=== PATIENT | male | born 1960 | race Two or more races ===

== ENCOUNTER 2017-02-11 08:42 | Day surgery (SDC) | payer OTHER ==
[~2017-02-11] VITALS: Ht 167.6 cm; Wt 114.0 kg
[2017-02-11] MEDS ORDERED: [UNRECOGNIZED DRUG - OTHER] (09:26)
[2017-02-11] MEDS ORDERED: [UNRECOGNIZED DRUG - REMARK] (09:26)
[2017-02-11] MEDS ORDERED: BP MED (09:26)
[2017-02-11] MEDS ORDERED: [UNRECOGNIZED DRUG - REMARK] (09:26)
[2017-02-11 09:27] VITALS: Ht 167.6 cm; Wt 114.0 kg
[2017-02-11] MEDS ORDERED: PROPOFOL 20 ML ONE (10:07)
[2017-02-11 10:13] VITALS: BP 165/86; PULSE 85; RESP 15
--- NOTE | 2017-02-11 10:32 | OPPN ---
Date/Time of Note Date/Time of Note DATE: 02/11/17 TIME: 10:31 Proc Note GI Procedure Date 02/11/17 Pre-procedure Diagnosis Screening for surveillance of colon polyp Post-procedure Diagnosis 2 polyps found in the rectum successfully removed by cold snare technique Procedure Performed: Colonoscopy Surgeon see signature line Rag Room Supervisor none Anesthesia Type: MAC Tourniquet Time none EBL none Transfusion required none Biopsy 1: None Polyp 1: Retrieved was sent for analysis Grafts/Implants none Tubes/Drains none Complication(s) none Disposition: PACU Procedure Description Dictated DADA MOORE MD Feb 11, 2017 10:32
[2017-02-11 11:02] VITALS: BP 135/80; PULSE 81; RESP 18
--- NOTE | 2017-02-11 11:39 | GILP ---
DATE OF PROCEDURE: 02/11/2017 PROCEDURE: Colonoscopy with polypectomy. INDICATION: A 56-year-old male undergoing this procedure for colon cancer screening. The risks of the procedure, related and unrelated complications, anesthetic risks, alternatives discussed, inform ed consent obtained. DESCRIPTION OF PROCEDURE: The patient was brought to the GI lab, sedated by ACCOUNTING CLERKS SUPERVISOR and after obtainin g sedation, digital examination done, which was normal. Sphincter tone was normal. Prostate was no t enlarged. Scope was passed with much ease into the rectum and advanced slowly through sigmoid, de scending, transverse colon all the way into the cecum. Rest of the colon appeared normal. Clarity and cleanliness was good. Appendiceal orifice and IC valve identified. While coming out, mucosa th oroughly inspected. There were 2 polyps identified, small polyp, 6-7 mm in diameter. Both were rem alexi successfully by cold snare technique. The patient had small hemorrhoids. IMPRESSION: 1. Hemorrhoids, small. 2. Two small polyps successfully removed by cold snare technique. 3. Negative all the way into the cecum. PLAN: Review the histopathology. Stay on high fiber diet. If the polyp is known hyperplastic flyermias alejo have a colonoscopy in 5 years. Dictated By: DADA DURÁN/JEFE Conf#: [id number] DID#: [id number] CC: DADA MOORE MD; BJ PALACIOS MD;*EndCC*
== END 2017-02-11 11:04 | disposition home or self-care (01) ==
LOC: GIL 08:42
PROVIDERS: ATTEND Internal Medicine Gastroenterology
DX: Z12.11 Encounter for screening for malignant neoplasm of colon (principal); K62.1 Rectal polyp; E11.9 Type 2 diabetes mellitus without complications; I10 Essential (primary) hypertension; E78.5 Hyperlipidemia, unspecified
CPT/HCPCS: 82962; 88305

== ENCOUNTER 2018-10-01 23:29 | Inpatient (IN) | payer OTHER ==
[~2018-10-01] VITALS: Ht 162.6 cm; Wt 114.4 kg
[~2018-10-01 23:29] MED LIST: AMLO-147 PO; BP MED; ERGO500013 PO; FURO40TA4 PO; LISI-471 PO; LORA-441 PO; METF-849 PO; MTF1000T PO; Magnesium Chloride PO; OMEP20CA16 PO; POTA20PA23 PO; ROPI1TAB PO; SIMV40TA3 PO; SPIR25TA PO; [UNRECOGNIZED DRUG - OTHER]; [UNRECOGNIZED DRUG - REMARK]; [UNRECOGNIZED DRUG - REMARK]
[2018-10-02] VITALS (7 sets, daily range): BP systolic 113–133; BP diastolic 60–74; PULSE 72–89; RESP 17–20; Ht 162.6 cm; Wt 114.4 kg
[2018-10-02] MEDS ORDERED: ACETAMINOPHEN 325 MG TAB PO PRN (03:30)
[2018-10-02] MEDS ORDERED: GLUCOSE GEL 15 GRAM TUBE PO PRN ×2 (04:00)
[2018-10-02] MEDS ORDERED: DEXTROSE 50% 50 ML SYRINGE IV PRN ×2 (04:00)
[2018-10-02] MEDS ORDERED: GLUCAGON 1 MG INJ IM PRN (04:00)
[2018-10-02] MEDS ORDERED: GLUCOSE GEL 15 GRAM TUBE BUCCAL PRN (04:00)
[2018-10-02] MEDS: FUROSEMIDE 40 MG INJ IV SCH ×2 (06:37→17:25)
[2018-10-02] MEDS: INSULIN ASPART [NOVOLOG] 3 ML PEN SC SCH ×4 (07:55→21:00)
[2018-10-02] MEDS: LISINOPRIL 20 MG TAB PO SCH (08:13)
[2018-10-02] MEDS: AMLODIPINE 10 MG TAB PO SCH (08:13)
[2018-10-02] MEDS ORDERED: HEPARIN 5,000 UNIT/1 ML VIAL SC SCH (09:00)
[2018-10-02] MEDS ORDERED: POTASSIUM CHLORIDE (SR) 20 MEQ TAB PO STA (16:24)
--- NOTE | 2018-10-02 16:27 | QN ---
Documentation Comment pt seen and examined with MOBILE HOME MECHANIC at bedside anasarca with ble edema low plt count, elevated INR>Suspect liver pathology will order abd US Thoracentesis UA and ECHO KRISTY GONZALEZ MD Oct 02, 2018 16:26
--- NOTE | 2018-10-02 16:56 | HP ---
Date/Time of Note Date/Time of Note DATE: 10/02/18 TIME: 16:22 Assessment/Plan VTE Prophylaxis Risk score (from [facility])>0 risk: 3 SCD applied (from [facility]): Yes Pharmacological prophylaxis: NA/contraindicated Pharm contraindication: thrombocytopenia Lines/Catheters IV Catheter Type (from [facility]): Saline Lock Urinary Cath still in place: No Assessment/Plan Hospital Course Systolic CHF echocardiogram is not available, lateral lower extremity edema hypochromic Anemia Neutropenia with thrombocytopenia more likely due to liver disease. 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 Hematuria Morbid obesity Hypokalemia Hypo-albuminemia s/p left eye surgery with consequent blindness Assessment/Plan -DVT prophylaxis stocking compressive devices, unable to utilize chemical agents due to thrombocytopenia -GI prophylaxis Protonix p.o. -Follow-up with the ultrasound of the pleural cavities - iron panel tomorrow -Low-fat diet Consent for the right centesis is no sign -Dr. Justin for the cardiology consult called dr celaya is methane gas collection system operator -Dr. Batres GI consult Result Diagram: 10/02/18 0946 10/02/18 1529 Results 24hrs Laboratory Tests Test 10/02/18 07:57 10/02/18 09:46 10/02/18 12:15 10/02/18 15:29 Bedside Glucose 92 100 White Blood Count 4.6 L Red Blood Count 3.13 L Hemoglobin 10.0 L Hematocrit 29.7 L Mean Corpuscular 94.9 Volume Mean Corpuscular 31.9 Hemoglobin Mean Corpuscular 33.7 Hemoglobin Concent Red Cell Distribution 14.9 H Width Platelet Count 37 L Mean Platelet Volume 12.0 H Immature Granulocytes 0.200 % Neutrophils % 60.9 Segmented Neutrophils 72 % (Manual) Lymphocytes % 22.3 Lymphocytes % 17 (Manual) Reactive Lymphocytes 2 H % (Manual) Monocytes % 13.1 H Monocytes % (Manual) 4 Eosinophils % 2.6 Eosinophils % 2 (Manual) Basophils % 0.9 Basophils % (Manual) 3 H Nucleated Red Blood 0.0 Cells % Immature Granulocytes 0.010 # Neutrophils # 2.8 Lymphocytes (Manual) 0.7 L Lymphocytes # 1.0 Reactive Lymphocytes 0.0 # Monocytes # 0.6 Monocytes # (Manual) 0.1 L Eosinophils # 0.1 Basophils # 0.0 Basophils # (Manual) 0.1 H Nucleated Red Blood 0.0 Cells # Pathologist YES Review (Hematology) Platelet Estimate SIG DECREASED Giant Platelets 1 H Poikilocytosis 1+ Anisocytosis 1+ Macrocytosis 1+ Prothrombin Time 21.5 H Prothrombin Time 1.7 Ratio INR International 1.86 Normalized Ratio Activated 50.0 H Partial Thromboplast Time Sodium Level 136 Potassium Level 3.4 L Chloride Level 105 Carbon Dioxide Level 30 Anion Gap 1 L Blood Urea Nitrogen 12 Creatinine 0.92 Est Glomerular > 60 Filtrat Rate mL/min Glucose Level 137 Calcium Level 8.4 Total Bilirubin 2.2 H Direct Bilirubin 0.00 Indirect Bilirubin 2.2 H Aspartate Amino 61 H Transf (AST/SGOT) Alanine 42 Aminotransferase (ALT /SGPT) Alkaline Phosphatase 111 Total Protein 7.1 Albumin 2.6 L Globulin 4.50 H Albumin/Globulin 0.57 Ratio HPI/ROS Admit Date/Time Admit Date/Time Oct 02, 2018 at 01:59 Hx of Present Illness This 66 years old obese male with medical history of diabetes mellitus type 2, left eye blindness, hypertension, bilateral lower extremity neuropathy, CHF was seen his primary doctor Dr. Shen, every 3 months. 2 weeks ago he observed that his lower extremity got swollen more than normal. He was prescribed by cardiology Lasix once a day. He was noncompliant. He did not take Lasix as prescribed he took it maybe once a week. Yesterday he went to [facility] with shortness of breath. He was evaluated in [facility]. There were chest x-ray done result is not available. They were CT scan done record is not available. The request old records from [place]. Incomplete medical record is reviewed: EKG was done which showed normal sinus rhythm. Patient was received in the emergency room Lasix [address] angiogram of the chest with contrast was performed the record is not available. CBC is WBC 3.2 RBC 3.31 hemoglobin 10.6 hematocrit 31 MCV 94 MCH 32 RDW 15.3% platelets 64. BNP is normal vital signs are normal BMP shows sodium 136 potassium 3.5 chloride 106 CO2 22 anion gap 8 glucose 97 BUN 8 creatinine 0.75 GFR above 60 calcium 8.1. UA showed Trace Judith clarity clear pH 5.0 specific gravity 1.0 16 protein negative blood 3+ glucose negative ketones negative bilirubin negative nitrite negative leukocyte esterase negative WBC 0-5 RBC 11-20 epithelial few mucus none. Social history lives with . Denies smoking drinking and alcohol abuse. Home medications are reviewed. In the chart. Surgical history status post left eye surgery for lens replacement patient is left blind. 2010, the patient has a left arm surgery when he was 4-year-old ROS Constitutional: No fever, cough or chills. EYE: left eye blindness. no other visual problems. CARDIOVASCULAR: No chest pain. No tachycardia. No Palpitation. RESPIRATORY: SOB, orthopnea GASTROINTESTINAL: No Nausea. No Vomiting. No constipation. Endocrine: No excessive thirst, No polyuria, No hot intolerance. No cold intolerance. MUSCULO-SKELETAL: No bone or Joint disease, increased edema bilateral lower ex tremity. NEUROLOGICAL: Alert oriented in person, place, time and situation. No Headache, Confusion. No Seizures. No problem with balance. PMH/Family/Social Past Medical History Medical History: congestive heart failure, diabetes, hypertension Medications Current Medications Amlodipine Besylate (Norvasc) 10 mg DAILY PO Last administered on 10/02/18at 08:13; Admin Dose 10 MG; Start 10/02/18 at 09:00 Furosemide (Lasix) 40 mg BID DIURETICS IV Last administered on 10/02/18at 06:37; Admin Dose 40 MG; Start 10/02/18 at 06:00 Lisinopril (Zestril) 20 mg DAILY PO Last administered on 10/02/18at 08:13; Admin Dose 20 MG; Start 10/02/18 at 09:00 Acetaminophen (Tylenol Tab) 650 mg Q6H PRN PO MILD PAIN(1-3)OR ELEVATED TEMP; Start 10/02/18 at 03:30 Diagnostic Test (Pha) (Accu-Chek) 1 ea 02 XX ; Start 10/03/18 at 02:00 Insulin Aspart (Novolog Insulin Pen) NOVOLOG *MILD* ALGORITHM WITH MEALS BEDTIME SC ; Start 10/02/18 at 07:55 Miscellaneous Information 1 ea NOTE XX ; Start 10/02/18 at 04:00 Glucose (Glutose) 15 gm Q15M PRN PO DECREASED GLUCOSE; Start 10/02/18 at 04:00 Glucose (Glutose) 22.5 gm Q15M PRN PO DECREASED GLUCOSE; Start 10/02/18 at 04:00 Dextrose (D50w Syringe) 25 ml Q15M PRN IV DECREASED GLUCOSE; Start 10/02/18 at 04:00 Dextrose (D50w Syringe) 50 ml Q15M PRN IV DECREASED GLUCOSE; Start 10/02/18 at 04:00 Glucagon (Glucagen) 1 mg Q15M PRN IM DECREASED GLUCOSE; Start 10/02/18 at 04:00 Glucose (Glutose) 15 gm Q15M PRN BUCCAL DECREASED GLUCOSE; Start 10/02/18 at 04:00 Coded Allergies: No Known Allergy (Unverified , 02/11/17) Past Surgical History Past Surgical Hx: other (left eye surgery) Social History Alcohol Use: none Smoking Status: Current every day smoker Drug Use: none Exam/Review of Systems Vital Signs Vitals Vital Signs Date Temp Pulse Resp B/P (MAP) Pulse Ox O2 O2 Flow FiO2 Time Delivery Rate 10/02/18 99.0 84 18 113/66 97 Room Air 15:25 (82) 10/02/18 2.0 08:00 Exam Exam No acute distress, no events overnight. Eyes: anicteric. no pallor Nose: no rhinorrhea Neck: supple, no thyromegaly, no carotid bruits Lungs: clear bilaterally, decreased. CVS: regular rate and rhythm, no murmurs Abdomen: soft, obese, bowel sounds present, no hepatosplenomegally, no masses, no rebound or guarding. Rectal: differed. External genitalia: no lesions. Extremities: 2 Plus edema, DP pulses are palpable Neuro: alert and oriented x 3 Gait: normal Motor strength: 5+/5+ Sensory exam: normal, bilaterally decreased Deep tendon reflexes: normal, Babisky reflexes are absent bilaterally Skin: no lesions MILTON GRAHAM NP Oct 02, 2018 16:34
--- NOTE | 2018-10-02 18:49 | CONS ---
DATE OF ADMISSION: 10/02/2018 DATE OF CONSULTATION: 10/02/2018 HISTORY OF PRESENT ILLNESS: A 58-year-old male was admitted for a pleural effusion and possible thor acocentesis. I reviewed his chart and ultrasound. The patient has got cirrhosis of liver. He is al so morbidly obese. He had a history of thrombocytopenia which was along with the cirrhosis of liver. All the findings were discussed with the patient and the . All the questions were answered and I will dictate the full note later on. Dictated By: DADA DURÁN/JEFE Conf#: [id number] DID#: [id number] CC: MARISELA AGUIRRE MD;*EndCC*
[2018-10-03] MEDS ORDERED: ACCU-CHEK XX SCH (02:00)
[2018-10-03 03:33] VITALS: BP 113/64; PULSE 80; RESP 18
[2018-10-03] MEDS: FUROSEMIDE 40 MG INJ IV SCH ×2 (06:24→17:30)
[2018-10-03 07:30] VITALS: BP 118/69; PULSE 78; RESP 20
[2018-10-03] MEDS: INSULIN ASPART [NOVOLOG] 3 ML PEN SC SCH ×2 (07:55→11:50)
[2018-10-03] MEDS: AMLODIPINE 10 MG TAB PO SCH (08:59)
[2018-10-03] MEDS: LISINOPRIL 20 MG TAB PO SCH (08:59)
[2018-10-03] MEDS ORDERED: ERGOCALCIFEROL 50,000 UNIT CAP PO SCH (12:00)
[2018-10-03] MEDS ORDERED: MAGNESIUM SULFATE 2 GM/50 ML 50 ML IVPB ONE (12:00)
--- NOTE | 2018-10-03 12:01 | PN ---
Date/Time of Note Date/Time of Note DATE: 10/03/18 TIME: 11:59 Assessment/Plan VTE Prophylaxis Risk score (from [facility])>0 risk: 2 [place]CD applied [place] [facility] Yes SCD contraindicated: low risk/ambulating Pharmacological prophylaxis: NA/contraindicated Pharm contraindication: anticoag not tolerated Lines/Catheters IV Catheter Type (from [facility]): Saline Lock Urinary Cath still in place: No Assessment/Plan Hospital Course Systolic CHF echocardiogram is not available, lateral lower extremity edema Normocytic hypochromic Anemia Neutropenia with thrombocytopenia more likely due to liver disease, liver cirrhosis. 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 Hematuria Morbid obesity Hypokalemia Hypo-albuminemia due to liver cirrhosis s/p left eye surgery with consequent blindness Small left pleural effusion Small simple cyst in the right kidney. Assessment/Plan -start ergocalciferol 50 000 weekly -magnesium supplement --potassium supplement -dr Batres consult is appreciated -dc accucheck -US liver reviewed -s/p plasma transfusion Result Diagram: 10/03/1856 10/03/1856 Results 24hrs Laboratory Tests Test 10/02/18 12:15 10/02/18 15:29 10/02/18 17:32 10/02/18 21:01 Bedside Glucose 100 115 141 Sodium Level 136 Potassium Level 3.4 L Chloride Level 105 Carbon Dioxide Level 30 Anion Gap 1 L Blood Urea Nitrogen 12 Creatinine 0.92 Est Glomerular > 60 Filtrat Rate mL/min Glucose Level 137 Calcium Level 8.4 Total Bilirubin 2.2 H Direct Bilirubin 0.00 Indirect Bilirubin 2.2 H Aspartate Amino 61 H Transf (AST/SGOT) Alanine 42 Aminotransferase (AL T/SGPT) Alkaline Phosphatase 111 Total Protein 7.1 Albumin 2.6 L Globulin 4.50 H Albumin/Globulin 0.57 Ratio Test 10/03/18 06:50 10/03/18 06:56 10/03/18 08:00 10/03/18 11:42 Hemoglobin A1c 5.2 White Blood Count 4.0 L Red Blood Count 3.13 L Hemoglobin 9.9 L Hematocrit 29.1 L Mean Corpuscular 93.0 Volume Mean Corpuscular 31.6 Hemoglobin Mean Corpuscular 34.0 Hemoglobin Concent Red Cell 14.7 H Distribution Width Platelet Count 51 #L Mean Platelet Volume 11.8 H Immature 0.200 Granulocytes % Neutrophils % 56.8 Lymphocytes % 26.8 Monocytes % 11.7 H Eosinophils % 3.5 Basophils % 1.0 Nucleated Red Blood 0.0 Cells % Immature 0.010 Granulocytes # Neutrophils # 2.3 Lymphocytes # 1.1 Monocytes # 0.5 Eosinophils # 0.1 Basophils # 0.0 Nucleated Red Blood 0.0 Cells # Prothrombin Time 19.9 H Prothrombin Time 1.6 Ratio INR International 1.68 Normalized Ratio Activated 48.5 H Partial Thromboplast Time Sodium Level 139 Potassium Level 3.6 Chloride Level 106 Carbon Dioxide Level 30 Anion Gap 3 L Blood Urea Nitrogen 12 Creatinine 0.90 Est Glomerular > 60 Filtrat Rate mL/min Glucose Level 99 Calcium Level 8.8 Phosphorus Level 4.0 Magnesium Level 1.4 L Iron Level 91 Total Iron Binding 228 L Capacity Percent Iron 40 Saturation Total Bilirubin 2.0 H Direct Bilirubin 0.00 Indirect Bilirubin 2.0 H Aspartate Amino 60 H Transf (AST/SGOT) Alanine 38 Aminotransferase (AL T/SGPT) Alkaline Phosphatase 104 Total Protein 7.2 Albumin 2.7 L Globulin 4.50 H Albumin/Globulin 0.60 Ratio Vitamin D < 12.8 L 1,25-Dihydroxy Bedside Glucose 95 120 Subjective 24 Hr Interval Summary Constitutional: improved Exam/Review of Systems Exam Vitals Vital Signs Date Temp Pulse Resp B/P (MAP) Pulse Ox O2 O2 Flow FiO2 Time Delivery Rate 10/03/18 Nasal 2.0 08:20 Cannula 10/03/18 98.1 78 20 118/69 98 07:30 (85) Intake and Output 10/02/18 10/02/18 10/03/18 1515:00 23:00 07:00 IntakeIntake Total 1092 ml BalanceBalance 1092 ml Constitutional: alert, oriented Psych: no complaints Head: normocephalic Eyes: nl conjunctiva ENMT: mucosa pink and moist Neck: supple Respiratory: clear to auscultation Cardiovascular: regular rate and rhythm Gastrointestinal: soft, other (obese) Genitourinary - Male: CVA tenderness; No nl penis, No nl scrotum, No discharge, No other Musculoskeletal: swelling (LE decreased) Results Results 24hrs Laboratory Tests Test 10/02/18 12:15 10/02/18 15:29 10/02/18 17:32 10/02/18 21:01 Bedside Glucose 100 115 141 Sodium Level 136 Potassium Level 3.4 L Chloride Level 105 Carbon Dioxide Level 30 Anion Gap 1 L Blood Urea Nitrogen 12 Creatinine 0.92 Est Glomerular > 60 Filtrat Rate mL/min Glucose Level 137 Calcium Level 8.4 Total Bilirubin 2.2 H Direct Bilirubin 0.00 Indirect Bilirubin 2.2 H Aspartate Amino 61 H Transf (AST/SGOT) Alanine 42 Aminotransferase (AL T/SGPT) Alkaline Phosphatase 111 Total Protein 7.1 Albumin 2.6 L Globulin 4.50 H Albumin/Globulin 0.57 Ratio Test 10/03/18 06:50 10/03/18 06:56 10/03/18 08:00 10/03/18 11:42 Hemoglobin A1c 5.2 White Blood Count 4.0 L Red Blood Count 3.13 L Hemoglobin 9.9 L Hematocrit 29.1 L Mean Corpuscular 93.0 Volume Mean Corpuscular 31.6 Hemoglobin Mean Corpuscular 34.0 Hemoglobin Concent Red Cell 14.7 H Distribution Width Platelet Count 51 #L Mean Platelet Volume 11.8 H Immature 0.200 Granulocytes % Neutrophils % 56.8 Lymphocytes % 26.8 Monocytes % 11.7 H Eosinophils % 3.5 Basophils % 1.0 Nucleated Red Blood 0.0 Cells % Immature 0.010 Granulocytes # Neutrophils # 2.3 Lymphocytes # 1.1 Monocytes # 0.5 Eosinophils # 0.1 Basophils # 0.0 Nucleated Red Blood 0.0 Cells # Prothrombin Time 19.9 H Prothrombin Time 1.6 Ratio INR International 1.68 Normalized Ratio Activated 48.5 H Partial Thromboplast Time Sodium Level 139 Potassium Level 3.6 Chloride Level 106 Carbon Dioxide Level 30 Anion Gap 3 L Blood Urea Nitrogen 12 Creatinine 0.90 Est Glomerular > 60 Filtrat Rate mL/min Glucose Level 99 Calcium Level 8.8 Phosphorus Level 4.0 Magnesium Level 1.4 L Iron Level 91 Total Iron Binding 228 L Capacity Percent Iron 40 Saturation Total Bilirubin 2.0 H Direct Bilirubin 0.00 Indirect Bilirubin 2.0 H Aspartate Amino 60 H Transf (AST/SGOT) Alanine 38 Aminotransferase (AL T/SGPT) Alkaline Phosphatase 104 Total Protein 7.2 Albumin 2.7 L Globulin 4.50 H Albumin/Globulin 0.60 Ratio Vitamin D < 12.8 L 1,25-Dihydroxy Bedside Glucose 95 120 Medications Medication Current Medications Amlodipine Besylate (Norvasc) 10 mg DAILY PO Last administered on 10/03/18at 08:59; Admin Dose 10 MG; Start 10/02/18 at 09:00 Furosemide (Lasix) 40 mg BID DIURETICS IV Last administered on 10/03/18at 06:24; Admin Dose 40 MG; Start 10/02/18 at 06:00 Lisinopril (Zestril) 20 mg DAILY PO Last administered on 10/03/18at 08:59; Admin Dose 20 MG; Start 10/02/18 at 09:00 Acetaminophen (Tylenol Tab) 650 mg Q6H PRN PO MILD PAIN(1-3)OR ELEVATED TEMP; Start 10/02/18 at 03:30 Diagnostic Test (Pha) (Accu-Chek) 1 ea 02 XX ; Start 10/03/18 at 02:00 Insulin Aspart (Novolog Insulin Pen) NOVOLOG *MILD* ALGORITHM WITH MEALS BEDTIME SC ; Start 10/02/18 at 07:55 Miscellaneous Information 1 ea NOTE XX ; Start 10/02/18 at 04:00 Glucose (Glutose) 15 gm Q15M PRN PO DECREASED GLUCOSE; Start 10/02/18 at 04:00 Glucose (Glutose) 22.5 gm Q15M PRN PO DECREASED GLUCOSE; Start 10/02/18 at 04:00 Dextrose (D50w Syringe) 25 ml Q15M PRN IV DECREASED GLUCOSE; Start 10/02/18 at 04:00 Dextrose (D50w Syringe) 50 ml Q15M PRN IV DECREASED GLUCOSE; Start 10/02/18 at 04:00 Glucagon (Glucagen) 1 mg Q15M PRN IM DECREASED GLUCOSE; Start 10/02/18 at 04:00 Glucose (Glutose) 15 gm Q15M PRN BUCCAL DECREASED GLUCOSE; Start 10/02/18 at 04:00 MILTON GRAHAM NP Oct 03, 2018 12:01
--- NOTE | 2018-10-03 13:14 | CONS ---
DATE OF ADMISSION: 10/02/2018 DATE OF CONSULTATION: 10/03/2018 TYPE OF CONSULTATION: Cardiology. REFERRED BY: Pradeep Aguirre MD PRESENTATION: This is a 66-year-old male with past medical history of CHF, hypertension, hyperlipide seferino, diabetes, left eye blindness, bilateral lower extremity neuropathy and obesity who presented wit h shortness of breath and lower extremity edema over the past 2 weeks. He is a rather poor historian and noncompliant with medications. He apparently did not take his Lasix as prescribed for about 1 w three affiliated. He initially presented to [facility], but was transferred to [facility] for [facility] level of care. Records from [place] not available. Currently, the patient fairly wel l. He says that he is still short of breath, but his shortness of breath is improving as well as his lower extremity edema is improving. He denies having shortness of breath at rest or dyspnea on exer tion but basically says that he has shortness of breath only when lying down and symptoms consistent with orthopnea. 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 He denies having any chest pain, palpitation s, lightheadedness, dizziness, presyncope or syncope. A 12-point review of systems negative except a s per HPI. PAST MEDICAL HISTORY: As above. PAST SURGICAL HISTORY: Status post left eye surgery for lens replacement and he is blind in the left eye and status post left arm surgery at age 4. FAMILY HISTORY: Unremarkable. SOCIAL HISTORY: Denies alcohol, tobacco or drug abuse. ALLERGIES: NO KNOWN DRUG ALLERGIES. MEDICATIONS: As per medical record. OBJECTIVE: VITAL SIGNS: Blood pressure 118/69, heart rate 78, respiratory rate 20, temperature 98.1, O2 sat 98% on room air. GENERAL: Well-developed, well nourished, obese. HEENT: Normocephalic, atraumatic. PERRLA. Clear sclerae. NECK: Supple. No lymphadenopathy. HEART: Regular rate and rhythm. Grade 2/6 systolic murmur in the left upper sternal border and left lower sternal border. Normal S1, S2. No S3, S4. No JVD. Respiratory fine crackles at the bilater al bases. PULMONARY: No wheezes or rhonchi. Nonlabored breathing. ABDOMEN: Soft, nontender, nondistended. Normoactive bowel sounds. EXTREMITIES: Warm and dry. There is 1 to 2+ pitting edema bilateral lower extremities. No clubbing or cyanosis. 2+ radial, dorsalis pedis and posterior pulses bilaterally. NEUROLOGIC: A and O x3. No focal deficits. LABORATORY DATA: Significant for WBC 4.0, hemoglobin 9.9, platelets 51. Creatinine normal at 0.9, p otassium 3.6, magnesium 1.4. Hemoglobin A1c 5.2. Vitamin D less than 12.8. Chest x-ray showed herb r vascular congestion with a small left pleural effusion. Abdominal ultrasound showed a small cirrho tic liver with moderate splenomegaly. Simple cyst in the right kidney and a contracted gallbladder w ith no evidence of gallstones. No EKG available. Telemetry shows sinus rhythm, heart rate 80s to 90 s. ASSESSMENT: 1. Shortness of breath, ? CHF, the patient denies having a history of CHF, although is a poor histor keli. 2. Hypertension, well controlled. 3. Hyperlipidemia. 4. Diabetes. 5. Pancytopenia. 6. Morbid obesity. 7. Pulmonary edema. 8. Lower extremity edema. PLAN: 1. The patient admitted to telemetry. Continue to monitor on tele. 2. Order echocardiogram. 3. Order a 12-lead EKG. 4. Check BNP and fasting lipid panel. Continue to diurese with Lasix 40 mg IV b.i.d. 5. Strict I's and O's, low sodium diet. 6. Monitor electrolytes and replace to keep potassium greater than 4, magnesium greater than 2. 7. Continue lisinopril and Amlodipine. We will continue to follow. Thank you for this consultation and allowing me to participate in the care of this patient. Dictated By: RODDY GORDON/JEFE Conf#: [id number] DID#: [id number] CC: PRADEEP AGUIRRE MD;*End*
--- NOTE | 2018-10-03 14:37 | CONS ---
DATE OF ADMISSION: 10/02/2018 DATE OF CONSULTATION: HISTORY OF PRESENT ILLNESS: The patient is a 58-year-old male with a history of diabetes mellitus ty pe 2, left eye blindness, hypertension, bilateral lower extremity neuropathy, felt that his lower ext remities were swollen. Cardiology started him on Lasix. However, the patient was taking Lasix just once a week instead of daily. He finally went to [facility] for shortness of breath, which showed a pleural effusion and so subsequently transferred and admitted to this facility. GI consult was called in for cirrhosis of liver. The patient did have a thrombocytopenia in the past week. He received platelet transfusion, and as per the discussion with the patient, he was seeing a liver spec ialist. No history of hepatitis A, B, C in the past as per the patient. SOCIAL HISTORY: He is . Does not smoke or drink alcohol. PAST SURGICAL HISTORY: Left eye surgery, lens replacement. REVIEW OF SYSTEMS: Otherwise negative. PHYSICAL EXAMINATION: GENERAL: Overweight, not in distress. VITAL SIGNS: Stable. HEENT: Unremarkable. NECK: Supple, no thyromegaly, no lymphadenopathy. CARDIOVASCULAR: No murmur, gallop, or click. LUNGS: Air entry diminished at both bases. ABDOMEN: Benign. He is still obese. EXTREMITIES: No edema. CENTRAL NERVOUS SYSTEM: Grossly within normal limits. LABORATORY DATA: Hematocrit is 29. His platelet count is 51. Total bilirubin was 2.2. Albumin is 2.6. IMAGING: His imaging study revealed cirrhosis of liver, Splenomegaly, contracted gallbladder, and tr lance left pleural effusion, not enough for thoracocentesis. IMPRESSION 1. Cirrhosis of liver. 2. Thrombocytopenia secondary to cirrhosis and splenomegaly. 3. Mild pleural effusion. 4. Pedal edema. 5. Obesity. 6. Anemia. 7. Diabetes mellitus. 8. Left eye blindness. 9. Peripheral neuropathy. 10. Congestive heart failure. PLAN: Continue with diuretics and add Aldactone given the history of cirrhosis of liver, p.o. 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 Dictated By: DADA DURÁN/JEFE Conf#: [id number] DID#: [id number] CC: MARISELA AGUIRRE MD;*EndCC*
[2018-10-03 15:35] VITALS: BP 112/63; PULSE 79; RESP 20
[2018-10-03 20:50] VITALS: BP 116/69; PULSE 77; RESP 16
[2018-10-04] VITALS: BP 116/65; PULSE 70; RESP 18
[2018-10-04 04:38] VITALS: BP 109/76; PULSE 70; RESP 18
[2018-10-04] MEDS: FUROSEMIDE 40 MG INJ IV SCH (06:54)
[2018-10-04 07:34] VITALS: BP 114/68; PULSE 74; RESP 20
[2018-10-04] MEDS ORDERED: SPIRONOLACTONE 25 MG TAB PO SCH (09:00)
[2018-10-04] MEDS ORDERED: AMLODIPINE 10 MG TAB PO SCH (09:00)
[2018-10-04] MEDS: LISINOPRIL 20 MG TAB PO SCH (09:07)
[2018-10-04 11:30] VITALS: BP 117/71; PULSE 81; RESP 20
--- NOTE | 2018-10-04 11:34 | CONS ---
Assessment/Plan Assessment/Plan Hospital Course (Demo Recall) Subjective No acute events. Still SOB and with LE edema. Tele: SR 70-80s Gen: Denies fever, chills CV: Denies chest pain, palpitations Resp: Denies SOB or cough GI: Denies nausea, vomiting, diarrhea, constipation, abdominal pain Neuro: Denies lightheadedness, dizziness, presyncope/syncope Medications and allergies reviewed Past medical, surgical, family and social history reviewed. Objective General: WD/WN, NAD, obese HEENT: NC/AT, PERRLA, dry mucus membranes CV: RRR, grade 1/6 systolic murmur, S1/S2, no S3/S4, no JVD, no carotid bruits Respiratory: Respiratory fine crackles at the bilateral bases, non-labored breathing GI: abdomen soft, NT/ND, normoactive bowel sounds Vascular: extremities are warm, 2+ radial/DT/PT pulses bilaterally, 1-2+ pitting edema bilateral lower extremities Neuro: A/O x3, no focal deficits EKG 10/02: SR CXR 10/02: hilar vascular congestion with a small left pleural effusion Assessment 1. Shortness of breath, ? CHF, the patient denies having a history of CHF, although is a poor historian. 2. Hypertension, well controlled. 3. Hyperlipidemia. 4. Diabetes. 5. Pancytopenia. 6. Morbid obesity. 7. Pulmonary edema. 8. Lower extremity edema. 9. Pancytopenia 10. Liver cirrhosis Plan - echo pending - cont tele - K 3.2, Mg. 1.4, replace to keep K>4 and Mg>2 - check BNP - continue Lasix, Lisinopril, Aldactone and Amlodipine - low sodium diet, fluid restriction, monitor I/Os Consultation Date/Type/Reason Admit Date/Time Oct 02, 2018 at 01:59 Initial Consult Date Type of Consult Cardiology Date/Time of Note DATE: 10/04/18 TIME: 11:24 Exam/Review of Systems Vital Signs Vitals Vital Signs Date Temp Pulse Resp B/P (MAP) Pulse Ox O2 O2 Flow FiO2 Time Delivery Rate 10/04/18 97.4 74 20 114/68 98 Room Air 07:34 (83) 10/03/18 2.0 08:20 Intake and Output 10/03/18 10/03/18 10/04/18 1515:00 23:00 07:00 IntakeIntake Total 420 ml BalanceBalance 420 ml Labs Result Diagram: 10/04/18 0622 10/04/18 0622 Results 24hrs Laboratory Tests Test 10/03/18 11:42 10/04/18 06:22 Bedside Glucose 120 White Blood Count 3.8 L Red Blood Count 3.04 L Hemoglobin 9.6 L Hematocrit 28.3 L Mean Corpuscular Volume 93.1 Mean Corpuscular Hemoglobin 31.6 Mean Corpuscular Hemoglobin Concent 33.9 Red Cell Distribution Width 14.6 H Platelet Count 42 L Mean Platelet Volume 11.3 H Immature Granulocytes % 0.300 Neutrophils % 56.7 Lymphocytes % 25.7 Monocytes % 11.3 H Eosinophils % 4.7 Basophils % 1.3 Nucleated Red Blood Cells % 0.0 Immature Granulocytes # 0.010 Neutrophils # 2.2 Lymphocytes # 1.0 Monocytes # 0.4 Eosinophils # 0.2 Basophils # 0.1 Nucleated Red Blood Cells # 0.0 Sodium Level 137 Potassium Level 3.2 L Chloride Level 106 Carbon Dioxide Level 30 Anion Gap 1 L Blood Urea Nitrogen 13 Creatinine 0.76 Est Glomerular Filtrat Rate mL/min > 60 Glucose Level 90 Calcium Level 8.4 Medications Medications Current Medications Furosemide (Lasix) 40 mg BID DIURETICS IV Last administered on 10/04/18at 06:54; Admin Dose 40 MG; Start 10/02/18 at 06:00 Lisinopril (Zestril) 20 mg DAILY PO Last administered on 10/04/18at 09:07; Admin Dose 20 MG; Start 10/02/18 at 09:00 Acetaminophen (Tylenol Tab) 650 mg Q6H PRN PO MILD PAIN(1-3)OR ELEVATED TEMP; Start 10/02/18 at 03:30 Miscellaneous Information 1 ea NOTE XX ; Start 10/02/18 at 04:00 Glucose (Glutose) 15 gm Q15M PRN PO DECREASED GLUCOSE; Start 10/02/18 at 04:00 Glucose (Glutose) 22.5 gm Q15M PRN PO DECREASED GLUCOSE; Start 10/02/18 at 04:00 Dextrose (D50w Syringe) 25 ml Q15M PRN IV DECREASED GLUCOSE; Start 10/02/18 at 04:00 Dextrose (D50w Syringe) 50 ml Q15M PRN IV DECREASED GLUCOSE; Start 10/02/18 at 04:00 Glucagon (Glucagen) 1 mg Q15M PRN IM DECREASED GLUCOSE; Start 10/02/18 at 04:00 Glucose (Glutose) 15 gm Q15M PRN BUCCAL DECREASED GLUCOSE; Start 10/02/18 at 04:00 Ergocalciferol (Drisdol) 50,000 unit Q7D PO Last administered on 10/03/18at 14:41; Admin Dose 50,000 UNIT; Start 10/03/18 at 12:00 Amlodipine Besylate (Norvasc) 2.5 mg DAILY PO Last administered on 10/04/18at 09:08; Admin Dose 2.5 MG; Start 10/04/18 at 09:00 Spironolactone (Aldactone) 25 mg DAILY PO Last administered on 10/04/18at 09:08; Admin Dose 25 MG; Start 10/04/18 at 09:00 RODDY DAWKINS DO Oct 04, 2018 11:34
--- NOTE | 2018-10-04 12:44 | PN ---
Date/Time of Note Date/Time of Note DATE: 10/04/18 TIME: 12:40 Assessment/Plan VTE Prophylaxis Risk score (from Ns)>0 risk: 2 [place] [facility] [place] Pharmacological prophylaxis: NA/contraindicated Pharm contraindication: thrombocytopenia Lines/Catheters IV Catheter Type (from Rust): Saline Lock Urinary Cath still in place: No Assessment/Plan Hospital Course Systolic CHF echocardiogram is not available, lateral lower extremity edema Normocytic hypochromic Anemia Neutropenia with thrombocytopenia more likely due to liver disease, liver cirrhosis. Diabetes mellitus type II with lower extremity neuropathy and diabetic retinopathy, controlled hg A1 C5,2. Hematuria Morbid obesity Hypokalemia Hypo-albuminemia due to liver cirrhosis s/p left eye surgery with consequent blindness Small left pleural effusion Small simple cyst in the right kidney. Assessment/Plan -add metformin 500 mg po daily instead of 1000 mg po bID -c/w lasix -potassium supplement daily -d/c pending after echocardiogram, preliminary EF % Result Diagram: 10/04/18 0622 10/04/18 0622 Results 24hrs Laboratory Tests Test 10/04/18 06:22 White Blood Count 3.8 L Red Blood Count 3.04 L Hemoglobin 9.6 L Hematocrit 28.3 L Mean Corpuscular Volume 93.1 Mean Corpuscular Hemoglobin 31.6 Mean Corpuscular Hemoglobin Concent 33.9 Red Cell Distribution Width 14.6 H Platelet Count 42 L Mean Platelet Volume 11.3 H Immature Granulocytes % 0.300 Neutrophils % 56.7 Lymphocytes % 25.7 Monocytes % 11.3 H Eosinophils % 4.7 Basophils % 1.3 Nucleated Red Blood Cells % 0.0 Immature Granulocytes # 0.010 Neutrophils # 2.2 Lymphocytes # 1.0 Monocytes # 0.4 Eosinophils # 0.2 Basophils # 0.1 Nucleated Red Blood Cells # 0.0 Sodium Level 137 Potassium Level 3.2 L Chloride Level 106 Carbon Dioxide Level 30 Anion Gap 1 L Blood Urea Nitrogen 13 Creatinine 0.76 Est Glomerular Filtrat Rate mL/min > 60 Glucose Level 90 Calcium Level 8.4 B-Type Natriuretic Peptide 41 Subjective 24 Hr Interval Summary Constitutional: improved Eyes: no complaints Exam/Review of Systems Exam Vitals Vital Signs Date Temp Pulse Resp B/P (MAP) Pulse Ox O2 O2 Flow FiO2 Time Delivery Rate 10/04/18 97.9 81 20 117/71 96 Room Air 11:30 (86) 8/10/19 2.0 08:20 Intake and Output 10/03/18 10/03/18 10/04/18 1515:00 23:00 07:00 IntakeIntake Total 420 ml BalanceBalance 420 ml Constitutional: alert, oriented Psych: no complaints Head: normocephalic, atraumatic Eyes: other ENMT: nl external ears & nose Neck: supple Respiratory: clear to auscultation Cardiovascular: regular rate and rhythm Gastrointestinal: soft Musculoskeletal: other (trace edema LE) Results Results 24hrs Laboratory Tests Test 10/04/18 06:22 White Blood Count 3.8 L Red Blood Count 3.04 L Hemoglobin 9.6 L Hematocrit 28.3 L Mean Corpuscular Volume 93.1 Mean Corpuscular Hemoglobin 31.6 Mean Corpuscular Hemoglobin Concent 33.9 Red Cell Distribution Width 14.6 H Platelet Count 42 L Mean Platelet Volume 11.3 H Immature Granulocytes % 0.300 Neutrophils % 56.7 Lymphocytes % 25.7 Monocytes % 11.3 H Eosinophils % 4.7 Basophils % 1.3 Nucleated Red Blood Cells % 0.0 Immature Granulocytes # 0.010 Neutrophils # 2.2 Lymphocytes # 1.0 Monocytes # 0.4 Eosinophils # 0.2 Basophils # 0.1 Nucleated Red Blood Cells # 0.0 Sodium Level 137 Potassium Level 3.2 L Chloride Level 106 Carbon Dioxide Level 30 Anion Gap 1 L Blood Urea Nitrogen 13 Creatinine 0.76 Est Glomerular Filtrat Rate mL/min > 60 Glucose Level 90 Calcium Level 8.4 B-Type Natriuretic Peptide 41 Medications Medication Current Medications Furosemide (Lasix) 40 mg BID DIURETICS IV Last administered on 10/04/18at 06:54; Admin Dose 40 MG; Start 10/02/18 at 06:00 Lisinopril (Zestril) 20 mg DAILY PO Last administered on 10/04/18at 09:07; Admin Dose 20 MG; Start 10/02/18 at 09:00 Acetaminophen (Tylenol Tab) 650 mg Q6H PRN PO MILD PAIN(1-3)OR ELEVATED TEMP; Start 10/02/18 at 03:30 Miscellaneous Information 1 ea NOTE XX ; Start 10/02/18 at 04:00 Glucose (Glutose) 15 gm Q15M PRN PO DECREASED GLUCOSE; Start 10/02/18 at 04:00 Glucose (Glutose) 22.5 gm Q15M PRN PO DECREASED GLUCOSE; Start 10/02/18 at 04:00 Dextrose (D50w Syringe) 25 ml Q15M PRN IV DECREASED GLUCOSE; Start 10/02/18 at 04:00 Dextrose (D50w Syringe) 50 ml Q15M PRN IV DECREASED GLUCOSE; Start 10/02/18 at 04:00 Glucagon (Glucagen) 1 mg Q15M PRN IM DECREASED GLUCOSE; Start 10/02/18 at 04:00 Glucose (Glutose) 15 gm Q15M PRN BUCCAL DECREASED GLUCOSE; Start 10/02/18 at 04:00 Ergocalciferol (Drisdol) 50,000 unit Q7D PO Last administered on 10/03/18at 14:41; Admin Dose 50,000 UNIT; Start 10/03/18 at 12:00 Amlodipine Besylate (Norvasc) 2.5 mg DAILY PO Last administered on 10/04/18at 09:08; Admin Dose 2.5 MG; Start 10/04/18 at 09:00 Spironolactone (Aldactone) 25 mg DAILY PO Last administered on 10/04/18at 09:08; Admin Dose 25 MG; Start 10/04/18 at 09:00 Potassium Chloride (Potassium Chloride Pwd/Soln) 40 meq DAILY PO ; Start 10/04/18 at 13:00; Status MILTON QUIROZ NP Oct 04, 2018 12:43
[2018-10-04] MEDS ORDERED: POTASSIUM CHLORIDE 20 MEQ POWDER FOR ORAL SOLN PO SCH (13:00)
--- NOTE | 2018-10-04 13:01 | RADRPT ---
Vent Rate: 81 bpm RR Interval: 740 msec FL Interval: 172 msec QRS Duration: 111 msec QT Interval: 399 msec QTC Interval: 464 msec P-R-T [place]: 38 - 9 - 35 degrees Sinus rhythm...normal P axis, V-rate 50- 99 Electronically Signed By: Darryl Johnson
--- NOTE | 2018-10-04 13:12 | PDOCDIS ---
Discharge Instructions DIAGNOSIS Discharge Diagnosis liver cirrhosis CONDITION [id number] Patient Condition: [id number] Stable HOME CARE INSTRUCTIONS: [id number] Diet Instructions: [id number] Low Fat /Cholesterol ACTIVITY: [id number] Activity Restrictions: [id number] Slowly Increase Activity Rest between Activity Avoid heavy lifting FOLLOW UP/APPOINTMENTS Follow-up Plan PCP 1 week -dr Batres Outpatient -Dr stroud, cardio MILTON GRAHAM [employer] PRINTER Oct 04, 2018 13:12
--- NOTE | 2018-10-04 13:21 | DS ---
Date/Time of Note Date/Time of Note DATE: 10/04/18 TIME: 13:20 Discharge Summary Admission/Discharge Info Admit Date/Time Oct 02, 2018 at 01:59 Discharge Date/Time Discharge Diagnosis liver cirrhosis Patient Condition: Stable Consults Dr Johansen, cardiology, dr Batres, GI Procedures echocardiogram Hospital Course This 66 years old obese male with medical history of diabetes mellitus type 2, left eye blindness, hypertension, bilateral lower extremity neuropathy, CHF was seen his primary doctor Dr. Shen, every 3 months. 2 weeks ago he observed that his lower extremity got swollen more than normal. He was prescribed by cardiology Lasix once a day. pt was noncompliant. He did not take Lasix as prescribed he took it maybe once a week. Yesterday he went to [facility] with shortness of breath. He was evaluated in [facility]. There were chest x-ray done result is not available. They were CT scan done record is not available. The request old records from [place]. Incomplete medical record is reviewed: EKG was done which showed normal sinus rhythm. Patient was received in the emergency room Lasix [address] angiogram of the chest with contrast was performed the record is not available. CBC is WBC 3.2 RBC 3.31 hemoglobin 10.6 hematocrit 31 MCV 94 MCH 32 RDW 15.3% platelets 64. BNP is normal vital signs are normal BMP shows sodium 136 potassium 3.5 chloride 106 CO2 22 anion gap 8 glucose 97 BUN 8 creatinine 0.75 GFR above 60 calcium 8.1. UA showed Judith clarity clear pH 5.0 specific gravity 1.0 16 protein negative blood 3+ glucose negative ketones negative bilirubin negative nitrite negative leukocyte esterase negative WBC 0-5 RBC 11- 20 epithelial few mucus none. Social history lives with . Denies smoking drinking and alcohol abuse. Home medications are reviewed. In the chart. Surgical history status post left eye surgery for lens replacement patient is left blind. 2010, the patient has a left arm surgery when he was 4-year-old Ds: Diastolic CHF with bilateral lower extremity edema Normocytic hypochromic Anemia Neutropenia with thrombocytopenia due to liver disease, liver cirrhosis. Diabetes mellitus type II with lower extremity neuropathy and diabetic retinopathy, controlled hg A1 C5,2. Hematuria Morbid obesity Hypokalemia Hypo-albuminemia due to liver cirrhosis s/p left eye surgery with consequent blindness Small left pleural effusion Small simple cyst in the right kidney. During hospitalization patient was seen by numerous specialists. Dr. Batres was gastroenterology specialist. We followed his recommendations. he recommended to continue with diuretics and add Aldactone given the history of cirrhosis of liver, p.o. fluid restriction, low-sodium diet, and definitely weight loss. Patient was on telemetry service, there were no abnormalities found during telemetry service. Dr Chapa/Margoth was a cardiology consult, echocardiogram was reviewed that demonstrated preserved heart function 60 % and stage I diastolic dysfunction. Pt was continued with Lisinopril and Amlodipine and diuretics was given BID along with fluid restriction. Hypoglycemic protocol is noted, but BS of the pt was stable lower than 100 and his metformin was decreased to 500 mg po daily. Patient is clinically improved, his SOB decreased and pedal edema decreased as well. Patient was able to ambulate, and does not require an additional oxygenation prior discharge. Plan of care was discussed with Dr. Flowers/Dr. Frank. In stable condition patient was discharged. Patient was instructed to continue designated medications. Patient was instructed to see primary care provider in 1 week, cardiology dr Fontenot in 1-2 weeks and hepatology MD in 1-2 weeks. All questions were answered and all problems were addressed. Home Meds Active Scripts Ergocalciferol (Vitamin D2) (VITAMIN D2) 50,000 Unit Capsule, 56229 UNIT PO Q7D for 30 Days, CAP Prov:MILTON GRAHAM NP 10/04/18 Metformin* (Glucophage*) 500 Mg Tab, 500 MG PO WITH BREAKFAST for 30 Days, TAB Prov:MILTON GRAHAM NP 10/04/18 Potassium Chloride (Potassium Chloride) 20 Meq Packet, 40 MEQ PO DAILY for 30 Days, PACKET Prov:MILTON GRAHAM NP 10/04/18 [Magnesium Chloride] 64 MG TABSR No Conflict Check, 128 MG PO DAILY for 30 Days Prov:MILTON GRAHAM NP 10/04/18 Spironolactone* (Aldactone*) 25 Mg Tablet, 25 MG PO DAILY for 30 Days, TAB Prov:MILTON GRAHAM NP 10/04/18 Reported Medications Omeprazole* (Omeprazole*) 20 Mg Capsule., 20 MG PO DAILY, #30 CAP 10/02/18 Ropinirole Hcl* (Ropinirole Hcl*) 1 Mg Tablet, 1 MG PO HS, TAB 10/02/18 Furosemide* (Furosemide*) 40 Mg Tablet, 40 MG PO DAILY, TAB 10/02/18 Simvastatin (Simvastatin) 40 Mg Tablet, 40 MG PO DAILY, #30 TAB 10/02/18 Lisinopril* (Lisinopril*) 20 Mg Tablet, 20 MG PO DAILY, #30 TAB 10/02/18 Amlodipine Besylate* (Amlodipine Besylate*) 10 Mg Tablet, 10 MG PO DAILY, #30 TAB 10/02/18 Discontinued Reported Medications Metformin* (Glucophage*) 1,000 Mg Tablet, 1000 MG PO DAILY, #30 TAB 10/02/18 [Dm Med Unkn] No Conflict Check 02/11/17 [Chol Meds Unkn] No Conflict Check 02/11/17 [Bp Med Unkn] No Conflict Check 02/11/17 [Bp Med] No Conflict Check 02/11/17 Follow-up Plan PCP 1 week -dr Batres Outpatient -Dr fontenot, cardio Primary Care Provider Justin Warren MD Time spent on discharge: < 30 minutes Pending Labs Laboratory Tests Test 10/04/18 06:22 White Blood Count 3.8 10^3/ul (4.8-10.8) Red Blood Count 3.04 10^6/ul (4.70-6.10) Hemoglobin 9.6 g/dl (14.0-18.0) Hematocrit 28.3 % (42.0-52.0) Mean Corpuscular Volume 93.1 fl (82.0-101.0) Mean Corpuscular Hemoglobin 31.6 pg (29.0-33.0) Mean Corpuscular Hemoglobin Concent 33.9 g/dl (32.0-37.0) Red Cell Distribution Width 14.6 % (11.5-14.5) Platelet Count 42 10^3/UL (140-415) Mean Platelet Volume 11.3 fl (7.4-10.4) Immature Granulocytes % 0.300 % (0.001-0.429) Neutrophils % 56.7 % (39.0-77.0) Lymphocytes % 25.7 % (15.0-51.0) Monocytes % 11.3 % (0.0-11.0) Eosinophils % 4.7 % (0.0-7.0) Basophils % 1.3 % (0.0-2.0) Nucleated Red Blood Cells % 0.0 /100WBC (0.0-0.0) Immature Granulocytes # 0.010 10^3/ul (0.0-0.031) Neutrophils # 2.2 10^3/ul (1.6-7.5) Lymphocytes # 1.0 10^3/ul (0.8-2.9) Monocytes # 0.4 10^3/ul (0.3-0.9) Eosinophils # 0.2 10^3/ul (0.0-0.5) Basophils # 0.1 10^3/ul (0.0-0.1) Nucleated Red Blood Cells # 0.0 10^3/ul (0.0-0.0) Sodium Level 137 mmol/L (135-144) Potassium Level 3.2 mmol/L (3.5-5.1) Chloride Level 106 mmol/L (97-110) Carbon Dioxide Level 30 mmol/L (21-31) Anion Gap 1 (5-13) Blood Urea Nitrogen 13 mg/dl (7-20) Creatinine 0.76 mg/dl (0.61-1.24) Est Glomerular Filtrat Rate mL/min > 60 mL/min (>60) Glucose Level 90 mg/dl (70-220) Calcium Level 8.4 mg/dl (8.4-10.2) B-Type Natriuretic Peptide 41 PG/ML (0-125) MILTON GRAHAM NP Oct 04, 2018 13:21
[2018-10-04] MEDS ORDERED: MAGNESIUM CHLORIDE (SR) 64 MG TAB PO SCH (14:00)
[2018-10-05] MEDS ORDERED: metFORMIN 500 MG TAB PO SCH (07:55)
--- NOTE | 2018-10-05 13:29 | RADRPT ---
Echocardiogram Report Patient Name: GOSIA MARTINEZPatient ID: [id number] : 1960 (58y 7m)Study Date: 10/03/2018 8:57:20 AM Gender: MAccession #: [id number] Tech: LE Location: [facility] Ref.Physician: KRISTY GONZALEZ Height(Cm): BSA: Weight(Kg): Quality: Technically Difficult StudyOrder Physician: KRISTY GONZALEZ Account #: Procedures: Echocardiographic Report: Transthoracic echocardiogram with complete 2D, M-Mode, and doppler examination. Indications: Congestive Heart Failure. Measurements: 2D/M Mode Doppler Measurement Value Normal Range Measurement Value Normal Range LVIDd 2D 4.4 [ 4.2 - 5.8 ] cm AV Mean Bentley 1.2 [ 70.0 - 90.0 ] cm/sec LVIDs 2D 3.0 [ 2.5 - 4.0 ] cm AV Mean PG 6.0 [ 2.0 - 4.0 ] mmHg LVPWd 2D 1.1 [ 0.6 - 1.0 ] cm AV Peak Bentley 1.6 [ 100.0 - 170.0 ] cm/sec IVSd 2D 1.1 [ 0.6 - 1.0 ] cm AV Peak PG 10.0 [ 2.0 - 9.0 ] mmHg EDV 2D 88.2 [ 62.0 - 150.0 ] ml AV VTI 32.0 cm ESV 2D 35.0 [ 21.0 - 61.0 ] ml LVOT Peak Bentley 1.1 [ 70.0 - 110.0 ] cm/sec EF 2D 60.3 [ 52.0 - 72.0 ] percent LVOT Peak PG 5.0 [ 2.0 - 6.0 ] mmHg LVOT Diam 2.0 [ 2.3 - 2.9 ] cm MV E Peak Bentley 0.9 [ 60.0 - 130.0 ] cm/sec MV A Peak Bentley 1.1 [ 100.0 - 120.0 ] cm/sec MV E/A 0.8 [ 0.8 - 1.5 ] ratio MV Decel Time 278 [ 104 - 258 ] msec Lat E` Bentley 0.1 [ 10.0 - 15.0 ] cm/sec Lateral E/E` 10.9 [ 1.0 - 2.0 ] ratio Med E` Bentley 0.1 cm/sec MV E/A 0.8 [ 0.8 - 1.5 ] ratio PV Peak Bentley 0.8 [ 40.0 - 80.0 ] cm/sec PV Peak PG 3.0 mmHg Findings: Left Ventricle: Normal left ventricular systolic function. Normal left ventricular cavity size. Normal left ventricular wall thickness. Ejection fraction is visually estimated at 60 %. Tissue Doppler/Mitral Doppler indices are consistent with impaired relaxation (Stage I diastolic dysfunction). Right Ventricle: Normal right ventricular size. Normal right ventricular systolic function. Left Atrium: There is mild enlargement of left atrium. Right Atrium: The right atrium is normal in size. Mitral Valve: Normal appearance of the mitral valve. Trace mitral regurgitation. Aortic Valve: Normal appearance of the aortic valve. No significant aortic stenosis or insufficiency. Tricuspid Valve: Normal appearance of the tricuspid valve. Unable to obtain RVSP due to minimal presence of tricuspid regurgitation. There is trace tricuspid regurgitation. Pulmonic Valve: Pulmonic valve not well visualized. Pericardium: Normal pericardium with no significant pericardial effusion. Aorta: Normal aortic root. IVC: Normal size and normal respiratory collapse consistent with normal right atrial pressure. Conclusions: Normal left ventricular systolic function. Normal left ventricular cavity size. Normal left ventricular wall thickness. Ejection fraction is visually estimated at 60 %. Tissue Doppler/Mitral Doppler indices are consistent with impaired relaxation (Stage I diastolic dysfunction). There is mild enlargement of left atrium. Normal appearance of the mitral valve. Trace mitral regurgitation. Normal appearance of the tricuspid valve. Unable to obtain RVSP due to minimal presence of tricuspid regurgitation. There is trace tricuspid regurgitation. Electronically Signed By: Alonzo Justin 2018-10-05 13:28:20 PDT
== END 2018-10-04 16:29 | disposition home or self-care (01) | DRG 292 ==
LOC: TEL 10-02 01:59
PROVIDERS: ADMIT Internal Medicine Nephrology; ATTEND Internal Medicine Nephrology
PROC: 30233R1 Transfusion of Nonautologous Platelets into Peripheral Vein, Percutaneous Approach (ICD-10-PCS; principal; 2018-10-02)
DX: I50.30 Unspecified diastolic (congestive) heart failure (principal); Z68.41 Body mass index [BMI] 40.0-44.9, adult; J90 Pleural effusion, not elsewhere classified; K74.60 Unspecified cirrhosis of liver; E66.01 Morbid (severe) obesity due to excess calories; E87.6 Hypokalemia; E88.09 Other disorders of plasma-protein metabolism, not elsewhere classified; D70.8 Other neutropenia; D69.6 Thrombocytopenia, unspecified; E11.40 Type 2 diabetes mellitus with diabetic neuropathy, unspecified; E11.319 Type 2 diabetes mellitus with unspecified diabetic retinopathy without macular edema; R31.9 Hematuria, unspecified; Z91.14 Patient's other noncompliance with medication regimen; R16.1 Splenomegaly, not elsewhere classified; D50.9 Iron deficiency anemia, unspecified
CPT/HCPCS: 36430; 71045; 76705; 80048; 80053; 82652; 82962; 83036; 83540; 83735; 83880; 84100; 85025; 85610; 85730; 86644; 86850; 86900; 86901; 86945; 93005; 93306; J1644; J1815; J1940; J3475; P9035

== ENCOUNTER 2018-10-11 08:56 | Inpatient (IN) | payer OTHER ==
[~2018-10-11] VITALS: Ht 162.6 cm; Wt 107.1 kg
[~2018-10-11 08:56] MED LIST changes: -BP MED; -MTF1000T PO; -[UNRECOGNIZED DRUG - OTHER]; -[UNRECOGNIZED DRUG - REMARK]; -[UNRECOGNIZED DRUG - REMARK]
[2018-10-11 10:56] VITALS: BP 106/61; PULSE 90; RESP 18
[2018-10-11 11:19] VITALS: Ht 162.6 cm; Wt 107.1 kg
[2018-10-11 12:00] VITALS: PULSE 90
[2018-10-11] MEDS: LISINOPRIL 20 MG TAB PO SCH (12:30)
[2018-10-11] MEDS ORDERED: FUROSEMIDE 40 MG TAB PO SCH (12:30)
[2018-10-11] MEDS: AMLODIPINE 5 MG TAB PO SCH (12:30)
[2018-10-11] MEDS ORDERED: NITROGLYCERIN (SL) 0.4 MG TAB SL PRN (14:00)
[2018-10-11] MEDS: SPIRONOLACTONE 25 MG TAB PO SCH (14:31)
[2018-10-11] MEDS: FUROSEMIDE 40 MG INJ IV SCH (14:32)
[2018-10-11 16:00] VITALS: PULSE 89
[2018-10-11 16:08] VITALS: BP 110/67; PULSE 89; RESP 18
[2018-10-11] MEDS: CEFTRIAXONE 1 GM/50 ML (PMX) 50 ML IVPB SCH (17:16)
[2018-10-11 20:17] VITALS: BP 100/56; PULSE 101; RESP 18
[2018-10-11] MEDS: ATORVASTATIN 20 MG TAB PO SCH (20:43)
[2018-10-11] MEDS: ROPINIROLE 1 MG TAB PO SCH (20:43)
[2018-10-11] MEDS ORDERED: POTASSIUM CHLORIDE (SR) 8 MEQ CAP PO SCH (21:00)
[2018-10-11] MEDS ORDERED: MAGNESIUM CHLORIDE (SR) 64 MG TAB PO SCH (21:00)
[2018-10-11] MEDS ORDERED: ACETAMINOPHEN 325 MG TAB PO PRN (22:30)
[2018-10-11] MEDS ORDERED: traMADol 50 MG TAB PO PRN (22:30)
[2018-10-11] MEDS: MAGNESIUM CHLORIDE (SR) 64 MG TAB PO SCH (23:07)
[2018-10-12 00:05] VITALS: BP 109/68; PULSE 98; RESP 18
[2018-10-12] MEDS: PANTOPRAZOLE (EC) 40 MG TAB PO SCH (07:07)
[2018-10-12] MEDS: ASPIRIN 81 MG TAB PO SCH (08:17)
[2018-10-12] MEDS: POTASSIUM CHLORIDE (SR) 20 MEQ TAB PO SCH (08:17)
[2018-10-12] MEDS: SPIRONOLACTONE 25 MG TAB PO SCH (08:17)
[2018-10-12] MEDS: MAGNESIUM CHLORIDE (SR) 64 MG TAB PO SCH ×2 (08:18→21:26)
[2018-10-12] MEDS: AMLODIPINE 5 MG TAB PO SCH (08:18)
[2018-10-12] MEDS: LISINOPRIL 20 MG TAB PO SCH (08:18)
[2018-10-12] MEDS: FUROSEMIDE 40 MG INJ IV SCH (08:19)
[2018-10-12 08:23] VITALS: BP 119/64; PULSE 88; RESP 18
[2018-10-12] MEDS ORDERED: ERGOCALCIFEROL 50,000 UNIT CAP PO SCH (09:00)
[2018-10-12 11:00] VITALS: BP 99/58; PULSE 86; RESP 18
[2018-10-12] MEDS ORDERED: REGADENOSON 0.4 MG/5 ML SYG ONE (11:24)
[2018-10-12 15:28] VITALS: BP 104/58; PULSE 86; RESP 18
[2018-10-12] MEDS: CEFTRIAXONE 1 GM/50 ML (PMX) 50 ML IVPB SCH (15:53)
[2018-10-12] MEDS ORDERED: LORAZEPAM 0.5 MG TAB PO PRN (17:30)
[2018-10-12 19:07] VITALS: BP 96/52; PULSE 81; RESP 18
[2018-10-12] MEDS: ATORVASTATIN 20 MG TAB PO SCH (21:26)
[2018-10-12] MEDS: ROPINIROLE 1 MG TAB PO SCH (21:26)
[2018-10-13] VITALS: BP 107/62; PULSE 80; RESP 18
[2018-10-13 04:00] VITALS: BP 92/50; PULSE 85; RESP 18
[2018-10-13] MEDS: PANTOPRAZOLE (EC) 40 MG TAB PO SCH (06:13)
[2018-10-13 07:25] VITALS: BP 108/57; PULSE 87; RESP 19
[2018-10-13] MEDS: ASPIRIN 81 MG TAB PO SCH (08:34)
[2018-10-13] MEDS: POTASSIUM CHLORIDE (SR) 20 MEQ TAB PO SCH (08:34)
[2018-10-13] MEDS: SPIRONOLACTONE 25 MG TAB PO SCH (08:34)
[2018-10-13] MEDS: LISINOPRIL 20 MG TAB PO SCH (08:35)
[2018-10-13] MEDS: FUROSEMIDE 40 MG INJ IV SCH (08:35)
[2018-10-13] MEDS: MAGNESIUM CHLORIDE (SR) 64 MG TAB PO SCH (10:37)
[2018-10-13 11:15] VITALS: BP 103/60; PULSE 82; RESP 20
[2018-10-13] MEDS ORDERED: MAGNESIUM SULFATE 2 GM/50 ML 50 ML IVPB ONE (12:00)
== END 2018-10-13 15:15 | disposition home or self-care (01) | DRG 880 ==
LOC: 6WM 10:19
PROVIDERS: ADMIT Internal Medicine Nephrology; ATTEND Internal Medicine Nephrology
DX: F41.9 Anxiety disorder, unspecified (principal); N17.9 Acute kidney failure, unspecified; I50.30 Unspecified diastolic (congestive) heart failure; Z68.41 Body mass index [BMI] 40.0-44.9, adult; R00.2 Palpitations; R07.9 Chest pain, unspecified; I11.0 Hypertensive heart disease with heart failure; D69.6 Thrombocytopenia, unspecified; E66.01 Morbid (severe) obesity due to excess calories; E87.5 Hyperkalemia; D64.9 Anemia, unspecified; E11.42 Type 2 diabetes mellitus with diabetic polyneuropathy; E11.319 Type 2 diabetes mellitus with unspecified diabetic retinopathy without macular edema; H54.62 Unqualified visual loss, left eye, normal vision right eye; K74.60 Unspecified cirrhosis of liver; D70.9 Neutropenia, unspecified
CPT/HCPCS: 71045; 78452; 80048; 80061; 81001; 83735; 84100; 84484; 85025; 93005; 93017; A9500; A9505; J0696; J1940; J2785; J3475